=== PATIENT | female | born 1955 | race Caucasian/White ===

== ENCOUNTER 2016-12-29 20:21 | Emergency (ER) | payer OTHER ==
[~2016-12-29] VITALS: Ht 160 cm; Wt 59.1 kg
[~2016-12-29 20:21] MED LIST: ATOR10TA65 PO; TRAM50TA2 PO
[2016-12-29 20:25] VITALS: Ht 160 cm; Wt 59.1 kg
[2016-12-29] MEDS ORDERED: KETOROLAC 30 MG INJ IM STA (20:54)
--- NOTE | 2016-12-29 21:34 | RADRPT ---
PROCEDURE: XR Left Shoulder. CLINICAL INDICATION: Left shoulder pain. TECHNIQUE: Three views. Frontal internal rotation, frontal external rotation, and scapular Y-view . COMPARISON: 02/01/2015. FINDINGS: There is no fracture or dislocation. There is a large region of soft tissue calcification superolaterally measuring 1.4 x 0.6 cm consiste nt with calcific tendonitis. Articular surfaces are intact. There is no lytic or blastic lesion. There is no radiopaque foreign body. IMPRESSION: 1. Calcific tendonitis. 2. Otherwise normal images of the left shoulder. 3. No change from 02/01/2015. RPTAT: QQ .Luis Timmons MD, Date Time Electronically viewed and signed by .Luis Timmons MD, on 12/29/2016 21:33 .R/
[2016-12-29] MEDS ORDERED: TRAM50TA2 PO (21:39)
--- NOTE | 2016-12-29 22:18 | ERD ---
ER Documentation Chief Complaint Chief Complaint left arm pain left shoulder pain x 6 months HPI 61-year-old female with no prior cardiac history left-sided shoulder pain has been ongoing for a week. She describes it as diffuse and achy going to her neck and has had seen pain a year ago when she was diagnosed with calcific tendinitis. Patient has a sharp pain not improving with Tylenol or ibuprofen at home. She denies chest pain, shortness breath, nausea, vomiting. ROS All systems reviewed and are negative except as per history of present illness. Medications Home Meds Active Scripts Tramadol HCl (Tramadol HCl) 50 Mg Tablet, 50 MG PO Q4 Y for PAIN, #20 TAB Prov:YARELI ALEJO PA-C 12/29/16 Tramadol HCl (Tramadol HCl) 50 Mg Tablet, 50 MG PO Q6 Y for PAIN, #10 TAB Prov:GIOVANNA CARBALLO 02/01/15 Reported Medications Atorvastatin Calcium (Atorvastatin Calcium) 10 Mg Tab, 10 MG PO HS, TAB 09/06/13 Allergies Allergies: Coded Allergies: ampicillin (Unverified Allergy, Intermediate, RASH, 09/06/13) PMhx/Soc History of Surgery: No Anesthesia Reaction: No Hx Neurological Disorder: No Hx Respiratory Disorders: No Hx Cardiac Disorders: Yes (HYPERLIPIDEMIA) Hx Psychiatric Problems: No Hx Alcohol Use: No Hx Substance Use: No Hx Tobacco Use: No Smoking Status: Never smoker Physical Exam Vitals Vital Signs Date Time Temp Pulse Resp B/P Pulse Ox O2 Delivery O2 Flow Rate FiO2 12/29/16 20:25 97.8 78 20 125/73 98 Physical Exam General: Well-developed, well-nourished. The patient appears in no acute distress. HEENT: Head is normocephalic, atraumatic. No scleral icterus. Neck: Supple. Nontender. Lungs: Clear to auscultation. Normal air movement. Heart: Regular rate and rhythm. S1 and S2 are normal. No murmurs, gallops, or rubs. Abdomen: Nondistended., Nontender. Extremities: Reproducible shoulder pain with abduction, no bony deformities, no warmth or erythema. Atraumatic. There is no swelling, radial pulses 2+ bilaterally. Neurologic: Alert and oriented 3. No focal deficits. Normal speech and gait. Skin: Normal turgor. No rash or lesions. Results 24 hrs Current Medications Medications (Trade) Dose Ordered Sig/Tessy Route PRN Reason Start Time Stop Time Status Last Admin Dose Admin Ketorolac Tromethamine (Toradol) 30 mg ONCE STAT IM 12/29/16 20:54 12/29/16 20:56 DC 12/29/16 21:22 DIAGNOSTIC IMAGING REPORT Patient: DANNY DE LA CRUZ : 1955 Age: 61 Sex: F MR #: [id number] DOS: 12/29/162053 Ordering MD: YARELI ALEJO PA-C Location: [facility] Room/Bed: PROCEDURE: XR Left Shoulder. CLINICAL INDICATION: Left shoulder pain. TECHNIQUE: Three views. Frontal internal rotation, frontal external rotation , and scapular Y-view. COMPARISON: 02/01/2015. FINDINGS: There is no fracture or dislocation. There is a large region of soft tissue calcification superolaterally measuring 1.4 x 0.6 cm consistent with calcific tendonitis. Articular surfaces are intact. There is no lytic or blastic lesion. There is no radiopaque foreign body. IMPRESSION: 1. Calcific tendonitis. 2. Otherwise normal images of the left shoulder. 3. No change from 02/01/2015. RPTAT: QQ .Luis Timmons MD, MD Date Time Electronically viewed and signed by .Luis Timmons MD, MD on 12/29/2016 21:33 .R/ CC: YARELI ALEJO PA-C Procedures/MDM 12-lead EKG(interpreted by supervising physician): Dr. Chatterjee Rate/Rhythm: Normal Sinus Rhythm, rate of 80 QRS, ST, T-waves: No changes consistent w/ acute ischemia, no intervals, no dysrhythmias, no ectopy Impression: No evidence of ischemia or arrhythmia Medical decision makin-year-old female presents with left-sided shoulder pain, patient's x-ray of the left shoulder today shows calcific tendinitis. Patient's pain is reproduced with manipulation of the shoulder and has evidence of calcific tendinitis on radiographic imaging today that can explain her pain. EKG shows no ischemic changes, and is normal sinus rhythm. Her history is not concerning for acute coronary syndrome, additionally the patient reports that this pain has occurred before a year ago and she was told that she had calcium in her shoulder. She will be given information to be followed up with orthopedics, for further evaluation and management. Patient's blood pressure was elevated (>120/80) but appears stable without evidence of hypertension emergency or urgency. The patient was counseled about the risks of hypertension and urged to pursue outpatient monitoring and therapy within a week with their primary care physician. Departure Diagnosis: Primary Impression: Calcific tendonitis Condition: Good Patient Instructions: Tendonitis Additional Instructions: ORTOPEDICO Specialist:Usted tiene cony condicin mdica que requiere que lila a un especialista dentro de los prximos 1-2 cr.POR FAVOR,CON HUGGINS SEGUIMIENTO DE PRIMARIA PHSICIAN refferal. SI USTED NO TIENE UN MDICO GENERAL Y / O USTED NO PUEDE PAGAR eric a un mdico,los siguientes bobo RECURSOS sido suministrado a usted. ES HUGGINS RESPONSABILIDAD PARA SER VISTOS POR EL ESPECIALISTA: YARELI ALEJO PA-C Dec 29, 2016 22:18
== END 2016-12-29 21:49 | disposition home or self-care (01) ==
LOC: FTE 20:21
DX: M65.222 Calcific tendinitis, left upper arm (principal)
CPT/HCPCS: 73030; 93005; 96372; J1885; Z7502

== ENCOUNTER 2016-12-31 09:29 | Emergency (ER) | payer OTHER ==
[~2016-12-31] VITALS: Ht 157.5 cm; Wt 59.1 kg
[2016-12-31 09:32] VITALS: Ht 157.5 cm; Wt 59.1 kg
[2016-12-31] MEDS ORDERED: KETOROLAC 30 MG INJ IM STA (10:06)
[2016-12-31] MEDS ORDERED: NAPR-260 PO (10:09)
--- NOTE | 2016-12-31 10:15 | ERD ---
ER Documentation Chief Complaint Chief Complaint Patient here for a rechck left shoulder pain HPI This is a 61-year-old female presents the emergency department today complaining of continued left shoulder pain. States that she was given an injection here a couple of days ago that improved her pain. States that she is taking the tramadol as prescribed. States that Monday she has an appointment at [facility]. States she has had this problem in the past and saw an orthopedic and they did remove some of the calcium deposits. States that she does have a slight headache but thinks it is related to the medicine she is taking. Denies any fevers or chills, vomiting, dizziness, blurred vision. ROS All systems reviewed and are negative except as per history of present illness. Medications Home Meds Active Scripts Naproxen* (Naprosyn*) 500 Mg Tablet, 500 MG PO BID Y for PAIN AND/OR INFLAMMATION, #30 TAB Prov:JHOANA MACEDO PA-C 12/31/16 Tramadol HCl (Tramadol HCl) 50 Mg Tablet, 50 MG PO Q4 Y for PAIN, #20 TAB Prov:YARELI ALEJO PA-C 12/29/16 Tramadol HCl (Tramadol HCl) 50 Mg Tablet, 50 MG PO Q6 Y for PAIN, #10 TAB Prov:GIOVANNA CARBALLO 02/01/15 Reported Medications Atorvastatin Calcium (Atorvastatin Calcium) 10 Mg Tab, 10 MG PO HS, TAB 09/06/13 Allergies Allergies: Coded Allergies: ampicillin (Unverified Allergy, Intermediate, RASH, 12/31/16) PMhx/Soc Medical and Surgical Hx: pt denies Surgical Hx History of Surgery: No Anesthesia Reaction: No Hx Neurological Disorder: No Hx Respiratory Disorders: No Hx Cardiac Disorders: Yes (HYPERLIPIDEMIA) Hx Psychiatric Problems: No Hx Alcohol Use: No Hx Substance Use: No Hx Tobacco Use: No Smoking Status: Never smoker Physical Exam Vitals Vital Signs Date Time Temp Pulse Resp B/P Pulse Ox O2 Delivery O2 Flow Rate FiO2 12/31/16 09:32 97.8 75 20 123/58 97 Physical Exam Const: pleasant, NAD Head: Atraumatic Eyes: Normal Conjunctiva PERRLA. EOM intact. ENT: Normal External Ears, Nose and Mouth. Neck: Full range of motion..~ No meningismus. Resp: Clear to auscultation bilaterally Cardio: Regular rate and rhythm, no murmurs Abd: Soft, non tender, non distended. Normal bowel sounds Skin: No petechiae or rashes MSK: left shoulder with no obvious deformity. No effusion. No ecchymosis. Unable to assess range of motion secondary to pain. Full active range of motion at elbow. Pulses 2+. Distal neurovascularly intact. Neur: Awake and alert cranial nerves II through XII intact. No gait ataxia. Psych: Normal Mood and Affect Results 24 hrs Current Medications Medications (Trade) Dose Ordered Sig/Tessy Route PRN Reason Start Time Stop Time Status Last Admin Dose Admin Ketorolac Tromethamine (Toradol) 30 mg ONCE STAT IM 12/31/16 10:06 12/31/16 10:07 DC 12/31/16 10:21 Procedures/MDM This is a 61-year-old female who presents emergency department today for acute on chronic left shoulder pain. Patient was seen here 2 days ago and had an x- ray done that showed a significant area of calcific tendinitis. Patient indicated that she has had this in the past. Patient was requesting medication for pain here in the ER. Patient was given a Toradol injection. She may continue taking her tramadol she was prescribed. Also given her prescription for Naprosyn which she may take for less severe pain patient indicated that she did have an appointment with her primary care doctor on Monday and will request referral back to industrial relations specialist this patient indicated she had a similar problem 2 years ago. Patient is afebrile and otherwise well-appearing. Low suspicion for septic joint or gout. Symptoms at this time is consistent with acute on chronic pain. She will be leaving the exam room patient indicated that she also had a headache. She does feel it is induced by medication and denies any other symptoms Patient has no focal neurologic deficits and no gait ataxia. I do not feel the patient requires a head CT scan for her headache that she feels is medication induced. She denies any other symptoms. Low suspicion for acute hemorrhage, mass, abscess, meningitis. Her blood pressure is not elevated and well within normal limits and I have low suspicion for hypertensive emergency or urgency as cause of headache. At this time the patient is stable for discharge and outpatient management. Patient should follow up with their PCP in the next 1-2 days. They may return to the emergency department sooner for any persistent or worsening of symptoms. Patient understood and agreed with the plan. Discussed the patient with Dr. Richardson and he is in agreement with the plan. Departure Diagnosis: Primary Impression: Chronic shoulder pain Laterality: left Qualified Code: M25.512 - Chronic left shoulder pain Condition: Fair Patient Instructions: Shoulder Problems, Tendonitis Referrals: [facility] (PCP) your orthopaedic Additional Instructions: Llame al doctor MAANA y sabine cony FRANCOISE PARA DENTRO DE 1-2 VILLAFANA.Dgale a la secretaria que nosotros le instruimos hacer esta francoise.Avise o llame si lee condicin se empeora antes de la francoise. Regresa aqui si peor o no mejor. Continue taking your tramadol for severe pain otherwise take Naprosyn or Tylenol or Motrin keep your appointment with your primary care doctor on Monday. Request referral for industrial relations specialist. Take a copy of your x-ray. JHOANA MACEDO PA-C Dec 31, 2016 10:15
--- NOTE | 2016-12-31 10:15 | ERD ---
ER Documentation Chief Complaint Chief Complaint Patient here for a rechck left shoulder pain HPI This is a 61-year-old female presents the emergency department today complaining of continued left shoulder pain. States that she was given an injection here a couple of days ago that improved her pain. States that she is taking the tramadol as prescribed. States that Monday she has an appointment at [facility]. States she has had this problem in the past and saw an orthopedic and they did remove some of the calcium deposits. States that she does have a slight headache but thinks it is related to the medicine she is taking. Denies any fevers or chills, vomiting, dizziness, blurred vision. ROS All systems reviewed and are negative except as per history of present illness. Medications Home Meds Active Scripts Naproxen* (Naprosyn*) 500 Mg Tablet, 500 MG PO BID Y for PAIN AND/OR INFLAMMATION, #30 TAB Prov:JHOANA MACEDO PA-C 12/31/16 Tramadol HCl (Tramadol HCl) 50 Mg Tablet, 50 MG PO Q4 Y for PAIN, #20 TAB Prov:YARELI ALEJO PA-C 12/29/16 Tramadol HCl (Tramadol HCl) 50 Mg Tablet, 50 MG PO Q6 Y for PAIN, #10 TAB Prov:GIOVANNA CARBALLO 02/01/15 Reported Medications Atorvastatin Calcium (Atorvastatin Calcium) 10 Mg Tab, 10 MG PO HS, TAB 09/06/13 Allergies Allergies: Coded Allergies: ampicillin (Unverified Allergy, Intermediate, RASH, 12/31/16) PMhx/Soc Medical and Surgical Hx: pt denies Surgical Hx History of Surgery: No Anesthesia Reaction: No Hx Neurological Disorder: No Hx Respiratory Disorders: No Hx Cardiac Disorders: Yes (HYPERLIPIDEMIA) Hx Psychiatric Problems: No Hx Alcohol Use: No Hx Substance Use: No Hx Tobacco Use: No Smoking Status: Never smoker Physical Exam Vitals Vital Signs Date Time Temp Pulse Resp B/P Pulse Ox O2 Delivery O2 Flow Rate FiO2 12/31/16 09:32 97.8 75 20 123/58 97 Physical Exam Const: pleasant, NAD Head: Atraumatic Eyes: Normal Conjunctiva PERRLA. EOM intact. ENT: Normal External Ears, Nose and Mouth. Neck: Full range of motion..~ No meningismus. Resp: Clear to auscultation bilaterally Cardio: Regular rate and rhythm, no murmurs Abd: Soft, non tender, non distended. Normal bowel sounds Skin: No petechiae or rashes MSK: left shoulder with no obvious deformity. No effusion. No ecchymosis. Unable to assess range of motion secondary to pain. Full active range of motion at elbow. Pulses 2+. Distal neurovascularly intact. Neur: Awake and alert cranial nerves II through XII intact. No gait ataxia. Psych: Normal Mood and Affect Results 24 hrs Current Medications Medications (Trade) Dose Ordered Sig/Tessy Route PRN Reason Start Time Stop Time Status Last Admin Dose Admin Ketorolac Tromethamine (Toradol) 30 mg ONCE STAT IM 12/31/16 10:06 12/31/16 10:07 DC 12/31/16 10:21 Procedures/MDM This is a 61-year-old female who presents emergency department today for acute on chronic left shoulder pain. Patient was seen here 2 days ago and had an x- ray done that showed a significant area of calcific tendinitis. Patient indicated that she has had this in the past. Patient was requesting medication for pain here in the ER. Patient was given a Toradol injection. She may continue taking her tramadol she was prescribed. Also given her prescription for Naprosyn which she may take for less severe pain patient indicated that she did have an appointment with her primary care doctor on Monday and will request referral back to digital media specialist this patient indicated she had a similar problem 2 years ago. Patient is afebrile and otherwise well-appearing. Low suspicion for septic joint or gout. Symptoms at this time is consistent with acute on chronic pain. She will be leaving the exam room patient indicated that she also had a headache. She does feel it is induced by medication and denies any other symptoms Patient has no focal neurologic deficits and no gait ataxia. I do not feel the patient requires a head CT scan for her headache that she feels is medication induced. She denies any other symptoms. Low suspicion for acute hemorrhage, mass, abscess, meningitis. Her blood pressure is not elevated and well within normal limits and I have low suspicion for hypertensive emergency or urgency as cause of headache. At this time the patient is stable for discharge and outpatient management. Patient should follow up with their PCP in the next 1-2 days. They may return to the emergency department sooner for any persistent or worsening of symptoms. Patient understood and agreed with the plan. Discussed the patient with Dr. Richardson and he is in agreement with the plan. Departure Diagnosis: Primary Impression: Chronic shoulder pain Laterality: left Qualified Code: M25.512 - Chronic left shoulder pain Condition: Fair Patient Instructions: Shoulder Problems, Tendonitis Referrals: [facility] (PCP) your orthopaedic Additional Instructions: Llame al doctor MAANA y sabine cony FRANCOISE PARA DENTRO DE 1-2 VILLAFANA.Dgale a la secretaria que nosotros le instruimos hacer esta francoise.Avise o llame si lee condicin se empeora antes de la francoise. Regresa aqui si peor o no mejor. Continue taking your tramadol for severe pain otherwise take Naprosyn or Tylenol or Motrin keep your appointment with your primary care doctor on Monday. Request referral for digital media specialist. Take a copy of your x-ray. JHOANA MACEDO PA-C Dec 31, 2016 10:15
== END 2016-12-31 10:13 | disposition home or self-care (01) ==
LOC: FTE 09:29
DX: M25.512 Pain in left shoulder (principal)
CPT/HCPCS: 96372; J1885; Z7502

== ENCOUNTER 2017-01-16 16:42 | Emergency (ER) | payer OTHER ==
[~2017-01-16] VITALS: Ht 157.5 cm; Wt 57.7 kg
[~2017-01-16 16:42] MED LIST changes: +NAPR-260 PO
[2017-01-16 17:03] VITALS: Ht 157.5 cm; Wt 57.7 kg
--- NOTE | 2017-01-16 19:21 | ERD ---
ER Documentation Chief Complaint Chief Complaint Headache and fatigability started yesterday. HPI This 61-year-old female presents to emergency department for complaints of headache and fatigability started yesterday. Patient describes the pain as throbbing pain, intermittent pain 6/10 scale, not better or worse with anything. Patient also feels fatigued. Patient denies any chest pain palpitations shortness of breath. Patient denies any dyspnea on exertion or dizzy on lying down. Patient denies any head injury. Patient denies any numbness or tingling. Patient denies any cough shortness of breath or wheezing. Patient denies any sore throat. Patient did not take any medications to help with symptoms ROS All systems reviewed and are negative except as per history of present illness. Medications Home Meds Active Scripts Naproxen* (Naprosyn*) 500 Mg Tablet, 500 MG PO BID Y for PAIN AND/OR INFLAMMATION, #30 TAB Prov:JHOANA MACEDO PA-C 12/31/16 Tramadol HCl (Tramadol HCl) 50 Mg Tablet, 50 MG PO Q4 Y for PAIN, #20 TAB Prov:YARELI ALEJO PA-C 12/29/16 Tramadol HCl (Tramadol HCl) 50 Mg Tablet, 50 MG PO Q6 Y for PAIN, #10 TAB Prov:GIOVANNA CARBALLO 02/01/15 Reported Medications Atorvastatin Calcium (Atorvastatin Calcium) 10 Mg Tab, 10 MG PO HS, TAB 09/06/13 Allergies Allergies: Coded Allergies: ampicillin (Unverified Allergy, Intermediate, RASH, 12/31/16) PMhx/Soc Medical and Surgical Hx: pt denies Surgical Hx History of Surgery: No Anesthesia Reaction: No Hx Neurological Disorder: No Hx Respiratory Disorders: No Hx Cardiac Disorders: Yes (HYPERLIPIDEMIA) Hx Psychiatric Problems: No Hx Alcohol Use: No Hx Substance Use: No Hx Tobacco Use: No Smoking Status: Never smoker FmHx Family History: No coronary disease, No diabetes, No other Physical Exam Vitals Vital Signs Date Time Temp Pulse Resp B/P Pulse Ox O2 Delivery O2 Flow Rate FiO2 01/16/17 17:03 98.7 86 20 126/70 98 Physical Exam GENERAL: The patient is well developed and appropriate for usual state of health, in no apparent distress. CHEST: Clear to auscultation bilaterally. There are no rales, wheezes or rhonchi. HEART: Regular rate and rhythm. No murmurs, clicks, rubs or gallops. No S3 or S4. ABDOMEN: Soft, nontender and nondistended. Good bowel sounds. No rebound or guarding. No gross peritonitis. No gross organomegaly or masses. No Gallardo sign or McBurney point tenderness. BACK: No midline or flank tenderness. EXTREMITIES: Equal pulses bilaterally. There is no peripheral clubbing, cyanosis or edema. No focal swelling or erythema. Full range of motion. Grossly neurovascularly intact. NEURO: Alert and oriented. Cranial nerves 2-12 intact. Motor strength in all 4 extremities with 5/5 strength. Sensation grossly intact. Normal speech and gait. Negative Romberg sign. Negative pronator drift. SKIN: There is no apparent rash or petechia. The skin is warm and dry. HEMATOLOGIC AND LYMPHATIC: There is no evidence of excessive bruising or lymphedema. No gross cervical, axillary, or inguinal lymphadenopathy. Results 24 hrs PROCEDURE: CT Brain without contrast. CLINICAL INDICATION: Headache TECHNIQUE: A CT of the brain was performed on a [id number] 64-slice CT scanner utilizing axial imaging from the skull base through the vertex without IV contrast. Multiplanar reformatted images were made. Images were reviewed on a PACS workstation. The CTDIvol is 41.2 mGy and the DLP is 720 mGycm. One or more of the following dose reduction techniques were utilized: 1.) Automated exposure control 2.) Adjustment of the mA +/- kV according to patient's size 3.) Use of iterative reconstruction technique. COMPARISON: None FINDINGS: There is no intracranial hemorrhage, mass effect, or midline shift. No extra- axial fluid collection is seen. The ventricles and sulci are normal in size and configuration. 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 Otherwise, the density of the brain is normal, and the christopher white matter differentiation appears well-preserved. The visualized paranasal sinuses and osseous structures are grossly unremarkable. IMPRESSION: 1. No evidence of acute intracranial pathology. 2. 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 Eduard Soares Physician Date Time Electronically viewed and signed by Eduard Soares Physician on 01/16/2017 22 :00 ML/ CC: ADRIAN WOODALL NP Procedures/MDM Medical Decision Making: Patient symptoms are consistent with migraine headache , possible tension headache can be also start of a viral illness. There is low suspicion for neurological emergencies at this time since patients neurologic exam is normal. Patient did not have any altered level consciousness, vomiting, changes in balance or memory and did not have any head injury. Patients CT scan of the head does not show any neurological emergencies at this time. Rx: Tramadol for severe pain, Tylenol for owwn-on-rgcdiyww pain Dispostion: Home. Stable Disclaimer: Inadvertent spelling and grammatical errors are likely due to EHR/ dictation software use and do not reflect on the overall quality of patient care. Also, please note that the electronic time recorded on this note does not necessarily reflect the actual time of the patient encounter. Departure Diagnosis: Primary Impression: Headache Headache type: unspecified Headache chronicity pattern: acute headache Intractability: not intractable Qualified Code: R51 - Acute nonintractable headache, unspecified headache type Condition: Stable Patient Instructions: Self-Care for Headaches ADRIAN WOODALL NP Jan 16, 2017 19:21
--- NOTE | 2017-01-16 22:01 | RADRPT ---
PROCEDURE: CT Brain without contrast. CLINICAL INDICATION: Headache TECHNIQUE: A CT of the brain was performed on a GE [employer]ope[employer] 64-slice CT scanner utilizing axial imaging from the skull base through the vertex without IV contrast. Multiplanar reformatted images were made. Images were reviewed on a PACS workstation. The CTDIvol is 41.2 mGy and the DLP is 720 mGycm. One or more of the following dose reduction techniques were utilized: 1.) Automated exposure control 2.) Adjustment of the mA +/- kV according to patient's size 3.) Use of iterative reconstruction technique. COMPARISON: None FINDINGS: There is no intracranial hemorrhage, mass effect, or midline shift. No extra-axial fluid collection is seen. The ventricles and sulci are normal in size and configuration. Punctate coarse calcificati on involving the right frontal lobe cortex is nonspecific but can be seen as sequelae of old neurocy sticercosis. Otherwise, the density of the brain is normal, and the christopher white matter differentiatio n appears well-preserved. The visualized paranasal sinuses and osseous structures are grossly unrem arkable. IMPRESSION: 1. No evidence of acute intracranial pathology. 2. 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 Physician Yahaira Date Time Electronically viewed and signed by Physician Yahaira on 01/16/2017 22:00 ML/
[2017-01-16] MEDS ORDERED: ACET500C5 PO (22:30)
[2017-01-16] MEDS ORDERED: TRAM50TA2 PO (22:30)
== END 2017-01-16 22:46 | disposition home or self-care (01) ==
LOC: FTE 16:42
DX: R51 Headache (principal)
CPT/HCPCS: 70450; Z7502